=== PATIENT | male | born 1965 | race Caucasian/White ===

== ENCOUNTER 2023-07-13 08:38 | Outpatient (CLI) | payer BC | END 2023-07-13 08:39 | disposition home or self-care (01) | LOC: CSHCT 08:38 | PROVIDERS: ATTEND Ophthalmology | DX: C69.31 Malignant neoplasm of right choroid (principal); R91.1 Solitary pulmonary nodule; E04.1 Nontoxic single thyroid nodule; K76.9 Liver disease, unspecified | CPT/HCPCS: 71260; 74178 ==

== ENCOUNTER 2024-11-11 10:34 | Outpatient (CLI) | payer BC | END 2024-11-11 10:35 | disposition home or self-care (01) | LOC: CSHMRI 10:34 | PROVIDERS: ATTEND Ophthalmology | DX: C69.31 Malignant neoplasm of right choroid (principal) | CPT/HCPCS: 71046; 74183 ==